=== PATIENT | female | born 1955 | race Caucasian/White ===

== ENCOUNTER 2017-02-21 19:40 | Inpatient (IN) | payer BC, OTHER ==
[~2017-02-21] VITALS: Ht 167.6 cm; Wt 58.7 kg
[2017-02-21] MEDS ORDERED: FENTANYL PF 100 MCG/2ML IVPush PRN (20:30)
[2017-02-21 20:53] LABS: ASPARTATE AMINO TRANSFERASE 12 U/L (15-37); BLOOD UREA NITROGEN 8 mg/dL (7-18)
[2017-02-21] MEDS ORDERED: FENTANYL PF 100 MCG/2ML ONE (20:56)
[2017-02-21 20:59] LABS: IS PT STATUS REG ER OR PRE ER? YES
[2017-02-21] MEDS ORDERED: PARO10TA3 PO (21:04)
[2017-02-21] MEDS ORDERED: TOPI100T94 PO (21:04)
[2017-02-21 21:21] LABS: ANISOCYTOSIS 1+; HYPOCHROMIA 1+; MICROCYTOSIS 1+; OVALOCYTES 1+; POIKILOCYTOSIS 1+
[2017-02-21] MEDS ORDERED: OMNIPAQUE 350 MG/ML, 100ML BOTTLE ONE (21:37)
[2017-02-21] MEDS ORDERED: NS + 20MEQ KCL 1,000 ML IV SCH (22:43)
[2017-02-21] MEDS ORDERED: NITROGLYCERIN OINT 2%, 1GM TP ONE (22:54)
[2017-02-21] MEDS ORDERED: LABETALOL 20 MG/4 ML ONE (22:54)
[2017-02-21] MEDS ORDERED: SUMATRIPTAN 25 MG TABLET PO PRN (23:00)
[2017-02-21] MEDS ORDERED: POLYETHYLENE GLYCOL 17 GM PACKET PO PRN (23:00)
[2017-02-21] MEDS ORDERED: ONDANSETRON 2MG/ML, 2ML IVP PRN (23:00)
[2017-02-21] MEDS ORDERED: ACETAMINOPHEN 325 MG TABLET PO PRN (23:00)
[2017-02-21] MEDS ORDERED: ENOXAPARIN 40 MG/0.4 ML SQ SCH (23:00)
[2017-02-21] MEDS ORDERED: DOCUSATE 100 MG CAPSULE PO PRN (23:00)
[2017-02-21] MEDS ORDERED: HYDROcodone/APAP 5/325 TABLET PO PRN (23:00)
[2017-02-21] MEDS ORDERED: MORPHINE SULFATE 4 MG/ML, 1ML IVPush PRN (23:00)
[2017-02-21] MEDS ORDERED: SUMATRIPTAN 6MG/0.5ML SQ PRN (23:00)
[2017-02-21] MEDS ORDERED: NS + 20MEQ KCL 1,000 ML IV ONE (23:14)
[2017-02-22 00:30] VITALS: BP 104/69
[2017-02-22] MEDS ORDERED: [UNRECOGNIZED DRUG - OTHER] MC SCH (00:30)
[2017-02-22] MEDS: TOPIRAMATE 100 MG TABLET PO SCH ×2 (00:43→09:17)
[2017-02-22 02:57] VITALS: BP 104/69
[2017-02-22] MEDS ORDERED: ASPIRIN 325 MG TABLET EC PO SCH (06:00)
[2017-02-22] MEDS ORDERED: ASPIRIN 81 MG TABLET EC PO SCH (06:00)
[2017-02-22 07:06] VITALS: BP 100/61
[2017-02-22] MEDS ORDERED: PAROXETINE 10 MG TABLET PO SCH (09:00)
[2017-02-22] MEDS ORDERED: SENNA/DOCUSATE TABLET PO SCH (09:00)
[2017-02-22] MEDS ORDERED: PROCHLORPERAZINE 5 MG/ML, 2ML IM ONE (10:30)
[2017-02-22] MEDS ORDERED: SODIUM CHLORIDE 0.9% 1,000ML IVBOLUS ONE (10:30)
[2017-02-22] MEDS ORDERED: KETOROLAC 30 MG/1 ML IVPush ONE (10:30)
[2017-02-22] MEDS ORDERED: DIPHENHYDRAMINE 50 MG/ML, 1ML IVPush ONE (10:30)
[2017-02-22 13:45] VITALS: BP 92/61
[2017-02-22] MEDS ORDERED: FERR325T20 PO (17:42)
[2017-02-22] MEDS ORDERED: ATORVASTATIN 10 MG TABLET PO SCH (21:00)
== END 2017-02-22 19:00 | disposition home or self-care (01) | DRG 69 ==
LOC: ED 22:17 → EDIP 22:18 → SUATTDRO 22:22 → ED 22:54 → 4WST 23:57
PROVIDERS: ADMIT Family Medicine; ATTEND Family Medicine
DX: G45.9 Transient cerebral ischemic attack, unspecified (principal); G43.109 Migraine with aura, not intractable, without status migrainosus; F17.200 Nicotine dependence, unspecified, uncomplicated; D50.9 Iron deficiency anemia, unspecified; Z66 Do not resuscitate; R47.81 Slurred speech; R29.810 Facial weakness; Z86.73 Personal history of transient ischemic attack (TIA), and cerebral infarction without residual deficits; Z82.49 Family history of ischemic heart disease and other diseases of the circulatory system; Z82.3 Family history of stroke; Z88.0 Allergy status to penicillin
CPT/HCPCS: 36415; 70450; 70496; 70498; 70551; 71010; 80053; 80061; 82728; 83540; 83550; 84466; 84484; 85025; 85610; 93005; 96374; J1650; J1885; J3010; J3480; Q9967; J0780; J1200; J3030; J7030